=== PATIENT | male | born 1975 | race American Indian/Alaskan Native ===

== ENCOUNTER 2020-02-23 14:51 | Emergency (ER) | payer BC, OTHER ==
[2020-02-23 15:04] VITALS: BP 160/105
== END 2020-02-23 19:50 | disposition left against medical advice (07) ==
LOC: ED 14:51
DX: R05 Cough (principal); R07.89 Other chest pain; R06.02 Shortness of breath; Z53.21 Procedure and treatment not carried out due to patient leaving prior to being seen by health care provider
CPT/HCPCS: 93005